=== PATIENT | female | born 1955 | race Caucasian/White ===

== ENCOUNTER 2016-06-22 04:32 | Emergency (ER) | payer OTHER ==
--- NOTE | 2016-06-22 07:14 | DIAGNOSTIC IMAGING REPORT ---
PROCEDURE: CT HEAD WITHOUT CONTRAST INDICATION: DIZZINESS TECHNIQUE: Axial CT images were acquired through the head. Coronal and sagittal reformations were created. COMPARISON: None. FINDINGS: No intracranial hemorrhage or extraaxial fluid collections. Ventricles are normal in size, shape and position. There is no mass, mass effect or midline shift. The agustin-white matter differentiation is normal. There is no edema. The calvarium is intact. The paranasal sinuses and mastoid air cells are normally aerated. The extracranial soft tissues and orbits are normal. IMPRESSION: 1. No CT evidence of acute intracranial process. 2. Findings discussed with Dr. Stover at 07:[address] scans at this facility use dose modulation, iterative reconstruction, and/or weight-based dosing when appropriate to reduce radiation dose to as low as reasonably achievable.
--- NOTE | 2016-06-22 07:19 | DIAGNOSTIC IMAGING REPORT ---
PROCEDURE: XR CHEST 1 VIEW INDICATION: DIZZY TECHNIQUE: Single view chest. 05:06 hours COMPARISON: 12/14/2009 FINDINGS: The cardiopulmonary contour and central vasculature are stable, within normal limits. The lungs are clear without focal consolidation, pleural effusion or pneumothorax. The osseous structures are intact. IMPRESSION: 1. No acute process. 2. Resolution of prior right lower lung infiltrate.
--- NOTE | 2016-06-22 08:13 | ED ORDER SUMMARY ---
..... Patient: JOSEPH LUTZ OrderSheet [facility] VisitID: [id number] [place] [address] 60y, F Registration Date/Time: 06/22/2016 ORDER SHEET Weight: 86.1 kg (stated) Allergies: Codeine GENERAL ORDERS: Chest 1V Urgent (04:56 06/22/2016 Maik SELLERS) (Ack 5:00 CHagerty ER Political Aide) (Ack 5:02 Nadiaekimana) (5:31 GUnger) CBC w Diff Urgent (04:57 06/22/2016 Maik SELLERS) (Ack 5:00 CHagerty ER Political Aide) (5:00 CHagerty ER Political Aide) (Ack 5:01 Maddy) CMP Urgent (04:57 06/22/2016 Maik SELLERS) (Ack 5:00 CHagerty ER Political Aide) (5:00 CHagerty ER Political Aide) (Ack 5:01 Maddy) UA-Culture if indicated Urgent (04:57 06/22/2016 Maik SELLERS) (Ack 5:00 CHagerty ER Political Aide) (Ack 5:01 Maddy) (5:55 RCollier R.N.) Amylase Urgent (04:57 06/22/2016 Maik SELLERS) (Ack 5:00 CHagerty ER Political Aide) (5:00 CHagerty ER Political Aide) (Ack 5:01 Maddy) Lipase Urgent (04:57 06/22/2016 Maik SELLERS) (Ack 5:00 CHagerty ER Political Aide) (5:00 CHagerty ER Political Aide) (Ack 5:01 Maddy) BNP Urgent (04:57 06/22/2016 Maik SELLERS) (Ack 5:00 CHagerty ER Political Aide) (5:00 CHagerty ER Political Aide) (Ack 5:01 Maddy) Urine Drug Screen Urgent (04:57 06/22/2016 Maik SELLERS) (Ack 5:00 CHagerty ER Political Aide) (Ack 5:01 Maddy) (5:55 RCollier R.N.) CPK Urgent (04:57 06/22/2016 Maik SELLERS) (Ack 5:00 CHagerty ER Political Aide) (5:00 CHagerty ER Political Aide) (Ack 5:01 CHategekimana) Troponin-I Urgent (04:57 06/22/2016 Maik SELLERS) (Ack 5:00 CHagerty ER Political Aide) (5:00 CHagerty ER Political Aide) (Ack 5:01 Millaegekimana) Vitals - Orthostatic (04:57 06/22/2016 Maik SELLERS) (5:32 RCollier R.N.) Mobile Nurse (Continuous) (04:57 06/22/2016 Maik SELLERS) (Ack 5:00 CHagerty ER Political Aide) (5:32 RCollier R.N.) Pulse oximeter (04:06/22/2016 Maik SELLERS) (Ack 5:00 CHagerty ER Political Aide) (5:32 RCollier R.N.) EKG - ER Stat (04:57 06/22/2016 Maik SELLERS) (Ack 5:00 CHagerty ER Political Aide) (Ack 5:02 Nadiaekimana) (5:02 CHategekimana) Ethyl Alcohol Urgent (05:15 06/22/2016 Maik SELLERS) (Ack 5:18 Nadiaekimana) (6:44 RCollier R.N.) CT Head wo Cont Urgent (05:19 06/22/2016 Maik SELLERS) (Ack 5:21 Millaegekimana) (6:44 Xochiltger) (6:44 RCollier R.N.) TSH Urgent (05:22 06/22/2016 Maik SELLERS) (Ack 5:33 Nadiaekimana) (6:44 RCollier R.N.) MEDICATION ORDERS: IV FLUIDS: IV Saline Lock (04:57 06/22/2016 Maik SELLERS) (Ack 4:57 RCollier R.N.) (7:35 RMarsden R.N.) IV NS : initial bolus 1000 mL (1000 mL/hr), then 200 mL/hr for 4h (NOW); Urgent (05:17 06/22/2016 Maik SELLERS) (Ack 5:18 RCollier R.N.) (5:33 Reji Serrano) ORDER SHEET NOTES: [Electronically signed by Marshall Stover MD (09:25 06/22/2016)] [Electronically signed by Logan Skelton R.N. (10:51 06/22/2016)] [Electronically locked/signed by Logan Skelton R.N. (10:51 06/22/2016)]
--- NOTE | 2016-06-22 08:13 | ED ORDER SUMMARY ---
..... Patient: JOSEPH LUTZ OrderSheet [facility] VisitID: [id number] [place] [address] 60y, F Registration Date/Time: 06/22/2016 ORDER SHEET Weight: 86.1 kg (stated) Allergies: Codeine GENERAL ORDERS: Chest 1V Urgent (04:56 06/22/2016 Maik SELLERS) (Ack 5:00 CHagerty ER Licensed Psychologist Director) (Ack 5:02 Nadiaekimana) (5:31 GUnger) CBC w Diff Urgent (04:57 06/22/2016 Maik SELLERS) (Ack 5:00 CHagerty ER Licensed Psychologist Director) (5:00 CHagerty ER Licensed Psychologist Director) (Ack 5:01 Maddy) CMP Urgent (04:57 06/22/2016 Maik SELLERS) (Ack 5:00 CHagerty ER Licensed Psychologist Director) (5:00 CHagerty ER Licensed Psychologist Director) (Ack 5:01 Maddy) UA-Culture if indicated Urgent (04:57 06/22/2016 Maik SELLERS) (Ack 5:00 CHagerty ER Licensed Psychologist Director) (Ack 5:01 Maddy) (5:55 RCollier R.N.) Amylase Urgent (04:57 06/22/2016 Maik SELLERS) (Ack 5:00 CHagerty ER Licensed Psychologist Director) (5:00 CHagerty ER Licensed Psychologist Director) (Ack 5:01 Maddy) Lipase Urgent (04:57 06/22/2016 Maik SELLERS) (Ack 5:00 CHagerty ER Licensed Psychologist Director) (5:00 CHagerty ER Licensed Psychologist Director) (Ack 5:01 Maddy) BNP Urgent (04:57 06/22/2016 Maik SELLERS) (Ack 5:00 CHagerty ER Licensed Psychologist Director) (5:00 CHagerty ER Licensed Psychologist Director) (Ack 5:01 Maddy) Urine Drug Screen Urgent (04:57 06/22/2016 Maik SELLERS) (Ack 5:00 CHagerty ER Licensed Psychologist Director) (Ack 5:01 Maddy) (5:55 RCollier R.N.) CPK Urgent (04:57 06/22/2016 Maik SELLERS) (Ack 5:00 CHagerty ER Licensed Psychologist Director) (5:00 CHagerty ER Licensed Psychologist Director) (Ack 5:01 CHategekimana) Troponin-I Urgent (04:57 06/22/2016 Maik SELLERS) (Ack 5:00 CHagerty ER Licensed Psychologist Director) (5:00 CHagerty ER Licensed Psychologist Director) (Ack 5:01 Millaegekimana) Vitals - Orthostatic (04:57 06/22/2016 Maik SELLERS) (5:32 RCollier R.N.) Macerator Operator (Continuous) (04:57 06/22/2016 Maik SELLERS) (Ack 5:00 CHagerty ER Licensed Psychologist Director) (5:32 RCollier R.N.) Pulse oximeter (04:06/22/2016 Maik SELLERS) (Ack 5:00 CHagerty ER Licensed Psychologist Director) (5:32 RCollier R.N.) EKG - ER Stat (04:57 06/22/2016 Maik SELLERS) (Ack 5:00 CHagerty ER Licensed Psychologist Director) (Ack 5:02 Nadiaekimana) (5:02 CHategekimana) Ethyl Alcohol Urgent (05:15 06/22/2016 Maik SELLERS) (Ack 5:18 Nadiaekimana) (6:44 RCollier R.N.) CT Head wo Cont Urgent (05:19 06/22/2016 Maik SELLERS) (Ack 5:21 Millaegekimana) (6:44 Xochiltger) (6:44 RCollier R.N.) TSH Urgent (05:22 06/22/2016 Maik SELLERS) (Ack 5:33 Nadiaekimana) (6:44 RCollier R.N.) MEDICATION ORDERS: IV FLUIDS: IV Saline Lock (04:57 06/22/2016 Maik SELLERS) (Ack 4:57 RCollier R.N.) (7:35 RMarsden R.N.) IV NS : initial bolus 1000 mL (1000 mL/hr), then 200 mL/hr for 4h (NOW); Urgent (05:17 06/22/2016 Maik SELLERS) (Ack 5:18 RCollier R.N.) (5:33 Reji Serrano) ORDER SHEET NOTES: [Electronically signed by Marshall Stover MD (09:25 06/22/2016)] [Electronically signed by Logan Skelton R.N. (10:51 06/22/2016)] [Electronically locked/signed by Logan Skelton R.N. (10:51 06/22/2016)]
--- NOTE | 2016-06-22 08:13 | ED CLINICAL REPORT ---
Clinical Report - Physicians/Mid Levels [facility] [address] [place] [address] 06/22/2016 4:32 Patient: JOSEPH LUTZ Time Seen: 04:43. Arrived- By private vehicle. Historian- patient. HISTORY OF PRESENT ILLNESS Chief Complaint: DIZZINESS. Described as a sense of movement. Not described as feeling light-headed or faint or a sense of confusion. This started today and is now gone. It was abrupt in onset and has been intermittent and waxing/waning. The patient has had nausea ("my stomach has been rolling and gurgling"). No vomiting, hearing loss, tinnitus or ear pain. REVIEW OF SYSTEMS The patient has had chills. No fever, sweats, calf pain, chest pain or cough. No difficulty breathing, pedal edema, black stools, bloody stools or urinary problems. She has had palpitations (chronically - she attributes this to anxiety). It has been similar to previous symptoms. She has had diarrhea (several days ago). She has had nausea (for 4 days). All systems otherwise negative, except as recorded above. PAST HISTORY ( Primary physician (Remberto)). Problems: Diverticulitis. Hypertension. Hypercholesterolemia. Additional Surgeries: Back Surgery. Cholecystectomy. Colon resection. Shoulder Surgery. Tonsillectomy. Medications: Simvastatin Oral, daily. Fiber Oral 4 tablets daily. Lisinopril Oral 20 mg, daily. Vitamins/Minerals Oral 1 pill, daily. Allergies: Codeine. SOCIAL HISTORY Never smoker. Occasional alcohol use. No drug use. FAMILY HISTORY Heart disease in first-degree relative (mother, father and sibling); emphysema in first-degree relative (sibling). ADDITIONAL NOTES The nursing notes have been reviewed. PHYSICAL EXAM Vital Signs: 06/22/2016 04:39 BP: 148/71. HR: 117. RR: 15. O2 saturation: 100%. Temp: 98.4 F. Pain level now: 0/10. Have been reviewed. Appearance: Alert. Anxious. Eyes: Pupils equal, round and reactive to light. No nystagmus. ENT: Normal ENT inspection. Pharynx normal. Neck: Normal inspection. Neck supple. No meningeal signs or carotid bruit. CVS: Normal heart rate and rhythm. Heart sounds normal. Respiratory: No respiratory distress. Breath sounds normal. Abdomen: Soft and nontender. No organomegaly. Back: Normal inspection. Skin: Skin warm and dry. Normal skin color. No rash. Normal skin turgor. Extremities: Extremities exhibit normal ROM. No calf tenderness. No lower extremity edema. Neuro: Alert. Speech normal. Cranial nerves normal (as tested). No cerebellar findings. No motor deficit. No sensory deficit. LABS, X-RAYS, AND EKG EKG: Rate: 116. Non-specific ST segment / T wave abnormalities. EKG unchanged when compared with prior EKG. (14 Dec 2009). The study has been independently viewed by me. Chest X-ray: (IMPRESSION: 1. No acute process. 2. Resolution of prior right lower lung infiltrate.). The X-rays were interpreted contemporaneously by me and discussed with the radiologist. CT Head: (IMPRESSION: 1. No CT evidence of acute intracranial process.). The study was interpreted by the radiologist and contemporaneously by me. Laboratory Tests: UA-Culture if indicated: (ELIZABETH: 06/22/2016 05:40) ( MsgRcvd 06/22/2016 05:56) Final results Test Result Flag Units (Reference) URINE COLOR YELLOW URINE APPEARANCE CLEAR URINE GLUCOSE NEGATIVE (NEGATIVE) URINE BILIRUBIN NEGATIVE (NEGATIVE) URINE KETONE NEGATIVE (NEGATIVE) URINE SPECIFIC GRAVITY 1.020 (1.010-1.030) URINE PH 6.0 (5.0-8.0) URINE PROTEIN NEGATIVE (NEGATIVE) URINE UROBILINOGEN 0.2 EU/dL (0.2-1.0) URINE NITRITE NEGATIVE (NEGATIVE) URINE BLOOD 1+ (NEGATIVE) URINE LEUK ESTERASE NEGATIVE (NEGATIVE) URINE RBC 0-1 rbc/hpf (0-1) URINE WBC 0-1 wbc/hpf (0-1) URINE EPITHELIAL CELLS 0-1 EPI/hpf (0-5) URINE BACTERIA NONE SEEN (NONE SEEN) URINE COMMENT CULT NOT INDICATED URINE CULTURES ARE SET-UP BASED ON THE FOLLOWING CRITERIA:POSITIVE NITRITEPOSITIVE LEUKOCYTE ESTERASEGREATER THAN 10 WHITE BLOOD CELLSMODERATE (2+) OR GREATER BACTERIA CBC w Diff: (ELIZABETH: 06/22/2016 04:47) ( [facility] 06/22/2016 05:03) Final results Test Result Flag Units (Reference) WHITE BLOOD COUNT 7.5 K/uL (4.5-11.5) RED BLOOD COUNT 4.65 M/uL (4.00-5.20) HEMOGLOBIN 13.2 gm/dL (12.0-16.0) HEMATOCRIT 40.0 % (36.0-46.0) MEAN CELL VOLUME 86 fL (80-100) MEAN CORPUSCULAR HGB 29 pg (26-34) MEAN CORPUSCULAR HGB CONC 33 g/dL (31-37) RED CELL DISTRIBUTION WIDTH 12.9 % (11.6-14.8) PLATELET COUNT 228 K/uL (150-400) NEUTROPHIL % 68.1 % (50-75) LYMPH % 26.7 % (25-40) MONO % 4.4 % (3-14) EOSINOPHIL % 0.6 % (0-4) BASOPHIL % 0.2 % (0-2) TSH: (ELIZABETH: 06/22/2016 04:47) ( [facility] 06/22/2016 05:44) Final results Test Result Flag Units (Reference) THYROID STIMULATING HORMONE 3.631 uIU/mL (0.30-3.74) Ethyl Alcohol: (ELIZABETH: 06/22/2016 04:47) ( [facility] 06/22/2016 05:24) Final results Test Result Flag Units (Reference) ETHYL ALCOHOL <3 L mg/dL (3-10) Urine Drug Screen: (ELIZABETH: 06/22/2016 05:40) ( [facility] 06/22/2016 06:09) Final results Test Result Flag Units (Reference) AMPHETAMINE/METHAMPHETAMINE NEGATIVE (NEGATIVE) BARBITURATE NEGATIVE (NEGATIVE) BENZODIAZEPINE NEGATIVE (NEGATIVE) CANNABINOID NEGATIVE (NEGATIVE) COCAINE NEGATIVE (NEGATIVE) ECSTASY NEGATIVE (NEGATIVE) METHADONE NEGATIVE (NEGATIVE) OPIATE NEGATIVE (NEGATIVE) The urine drug screen is a qualitative screening test fordrug overdose and abuse. All screen results should beconsidered as presumptive.Drugs screened for are as follows:BenzodiazepinesCocaineAmphetamines/MetamphetaminesTHC (Tetrahydrocannabinol)OpiatesBarbituratesEcstasyMethadonePositive results are unconfirmed. For confirmation, notifythe lab for the specimen to be sent to the reference lab.All confirmations must be performed by a differentmethodology.The ingestion of natural herbal and plant productscontaining Ephedra/Ephedra metabolites can produce in urineone or more substances capable of cross reacting withamphetamine/methamphetamine immunoassays. These testsprovide a preliminary result only. A more specificalternative chemical method must be used to obtain aconfirmed analytical result. BNP: (ELIZABETH: 06/22/2016 04:47) ( MsgRcvd 06/22/2016 05:28) Final results Test Result Flag Units (Reference) B-TYPE NATRIURETIC PEPTIDE 18.2 pg/ml (5-100) CMP: (ELIZABETH: 06/22/2016 04:47) ( MsgRcvd 06/22/2016 05:23) Final results Test Result Flag Units (Reference) GLUCOSE 125 H mg/dL (70-110) BUN 18 mg/dL (7-18) CREATININE 0.8 mg/dL (0.6-1.3) Estimated GFR >60 mL/min Estimated GFR- >60 mL/min Note: Persistent reduction over 3 months in eGFR<60 mL/min/1.73 m2 defines CKD. Patients with eGFR values>=60 mL/min/1.73 m2 may also have CKD if evidence ofpersistent proteinuria. Additional information may be foundat www.kidney.org. SODIUM 141 mmol/L (136-145) POTASSIUM 3.8 mmol/L (3.5-5.1) CHLORIDE 107 mmol/L (98-107) CARBON DIOXIDE 24 mmol/L (21-32) CALCIUM 8.6 mg/dL (8.5-10.1) TOTAL PROTEIN 7.3 g/dL (6.4-8.2) ALBUMIN 4.0 g/dL (3.3-5.0) BILIRUBIN, TOTAL 0.4 mg/dL (0.0-1.0) ALKALINE PHOSPHATASE 89 U/L (46-116) AST (SGOT) 25 U/L (15-37) ALT (SGPT) 40 U/L (12-78) LIPASE 191 U/L (73-393) AMYLASE 85 U/L (25-115) CPK 64 U/L (24-260) TROPONIN I <0.05 L ng/mL (0.00-1.5) TROPONIN REFERENCE RANGE:<0.1 NEGATIVE0.1-1.5 INDETERMINANT>1.5 POSITIVE . PROGRESS AND PROCEDURES Course of Care: Patient is stable. Patient/family counseled. Old medical records reviewed. Disposition: Discharged. Condition: stable. CLINICAL IMPRESSION Acute dizziness Mild volume depletion. INSTRUCTIONS No driving or operating machinery while taking medication. Drink plenty of fluids. Warnings: Further evaluation is necessary. GENERAL WARNINGS: Return or contact your physician immediately if your condition worsens or changes unexpectedly, if not improving as expected, or if other problems arise. Your Current Medications: CONTINUE TAKING THE FOLLOWING MEDICATIONS: Fiber Oral : 4 tablets daily. Lisinopril Oral : 20 mg daily. Simvastatin Oral : daily. Vitamins/Minerals Oral : 1 pill daily. Prescription Medications: Meclizine 25 mg: Take 1 tablet orally every 8 hours as needed for dizziness. Dispense thirty (30). No refills. Follow-up: Follow up with a neurologist- as recommended by your primary care physician. Understanding of the discharge instructions verbalized by patient. Follow-up with: Charanjit Sr MD, [facility], , [address] [place] [id number] Follow up today. Call for the next available appointment. (Electronically signed by Marshall Stover MD 06/22/2016 9:25)
--- NOTE | 2016-06-22 08:13 | ED NURSING NOTES ---
Clinical Report - Nurses [facility] [address] [place] [address] 06/22/2016 4:32 [id number] TRI[facility] Triage time 04:39. Acuity: LEVEL 3. Chief Complaint: DIZZINESS. --04:43 Tasha Moody R.N. 04:39 06/22/16. BP: 148/71. HR: 117. RR: 15 (regular and unlabored). O2 saturation: 100% on room air. Temp: 98.4 F (oral). Pain level now: 0/10. --04:43 Tasha Moody R.N. Weight: 86.1 kg stated. Height/Length: 65 inches Per Patient. BMI: 31.6. --04:43 Tasha Moody R.N. Medications Fiber Oral 4 tablets daily. Lisinopril Oral 20 mg, daily. Vitamins/Minerals Oral 1 pill, daily. --04:41 Tasha Moody R.N. Simvastatin Oral, daily. --04:41 Tasha Moody R.N. The following entry was struck and corrected by Tasha Moody R.N., 04:45 (06/22/16) Reason for correction - other(correction). <<STRICKEN ENTRY-- Simvastatin Oral. --04:41 Tasha Moody R.N. --END STRIKE>>. Allergies Codeine. --04:41 Tasha Moody R.N. History Arrived by private vehicle. Historian: patient. Accompanied by family. Primary physician (Remberto). This started today at about 0100. She has had nausea. SOCIAL HX: Never smoker. Occasional alcohol use. No drug use. NUTRITIONAL RISK ASSESSMENT: The nutritional risk assessment revealed no deficiencies. FUNCTIONAL ASSESSMENT: Functional assessment: no impairments noted. --04:43 Tasha Moody R.N. PROBLEMS: Hypertension. Hypercholesterolemia. --04:42 Tasha Moody R.N. ADDITIONAL SURGERIES: Back Surgery. Cholecystectomy. Colon resection. Shoulder Surgery. Tonsillectomy. --04:42 Tasha Moody R.N. Interventions ID band on patient. To treatment room. --04:43 Tasha Moody R.N. PHYSICAL ASSESSMENT To room via wheelchair. Patient gowned. GENERAL / NEURO / PSYCH: Oriented X 4. Appears in no acute distress. Alert. Speech within normal limits. HEENT: No facial asymmetry noted. RESPIRATORY: Respirations not labored. CVS: Capillary refill less than 2 seconds. SKIN: Skin is warm and dry. --04:44 Tasha Moody R.N. NURSING PROGRESS NOTES Head of bed elevated. Two patient identifiers checked. Call light placed in reach. Side rails up x 1. Bed placed in lowest position. Brakes of bed on. --04:44 Tasha Moody R.N. Patient ready for evaluation- chart flagged. --04:44 Tasha Moody R.N. awake overnight monitor, pulse oximeter and NIBP monitor placed on patient; monitor alarms on. --04:44 Tasha Moody R.N. 04:53 06/22/2016 Site #1 started via IV in the right antecubital space with an 20g angiocath, with aseptic technique and good blood return; two attempts. Blood drawn: rainbow set. Labeled in the presence of the patient and sent to the lab. Saline lock flushed with 10 mL saline. --04:56 Tasha Moody R.N. EKG time: (0456 AM). EKG was ordered, performed by a tech and shown to the ED physician. --05:03 Janel Moreland 05:22 06/22/16. BP: 144/78 taken while lying. HR: 105. --05:29 Tasha Moody R.N. 05:24 06/22/16. BP: 136/79 taken while sitting. HR: 110. --05:30 Tasha Moody R.N. 05:26 06/22/16. BP: 149/88. HR: 112. Additional comments: HR initally, upon standing, was 125. by the time the pressure had taken, it was down to 112. Pt denies increase of symptoms upon position change. EDMD aware. --05:32 Tasha Moody R.N. 05:29 06/22/2016 Started bag #1 1000 mL IV Fluids IV NS (Saline); at 1000 mL/hr over 1 hour(s) via site #1 via IV pump. Allergies verified and confirmed 5 rights. IV patency established. IV site checked: no pain, redness, or swelling. IV flushed thoroughly pre- and post-medication administration. --05:33 Tasha Moody R.N. ( assisted pt up to ambulate to restroom and back to bed.). --05:41 Tasha Moody R.N. Patient ID band checked for patient name and birthdate: patient confirmed. Instructions provided to collect clean catch urine and patient verbalized understanding. Clean catch urine collected with return of yellow-colored clear urine; sample sent to lab. Specimen labeled in the presence of the patient. --05:41 Tasha Moody R.N. ( Jewelry removed by patient and placed in a specimen cup.). --06:05 Tasha Moody R.N. Patient returned from CT by stretcher with tech. (06:38). --06:41 Tasha Moody R.N. 06:41 06/22/16. BP: 145/74. HR: 94. RR: 15. O2 saturation: 100% on room air. Pain level now: 0/10. --06:41 Tasha Moody R.N. 06:39 06/22/2016 IV Fluids IV NS Discontinued: bag #1 completed. Total amount infused: 1000 mL. IV patency established. IV site checked: no pain, redness, or swelling. IV flushed thoroughly. --06:43 Tasha Moody R.N. 06:40 06/22/2016 Started bag #2 1000 mL IV Fluids IV NS (Saline); at 200 mL/hr via site #1 via IV pump. Allergies verified and confirmed 5 rights. IV patency established. IV site checked: no pain, redness, or swelling. IV flushed thoroughly pre- and post-medication administration. --06:44 Tasha Moody R.N. 07:10. ( Patient ambulated to bathroom). --07:35 Genesis Li R.N. 07:45 06/22/16. BP: 133/78 (regular adult cuff) taken on the left arm, while lying. HR: 95. RR: 20. O2 saturation: 96% on room air. Pain level now: 0/10. --07:48 Logan Skelton R.N. ( Pt up to the BR. She states that she is more dizzy when laying down than when she is standing.). --07:48 Logan Skelton R.N. 08:10 06/22/2016 IV Fluids IV NS Discontinued: bag #2. Total amount infused: 350 mL. --08:33 Logan Skelton R.N. 08:32 06/22/2016 Site #1 removed upon discharge. --08:32 Logan Skelton R.N. DISPOSITION / DISCHARGE 07:45 06/22/16. BP: 133/78 (regular adult cuff) taken on the left arm, while lying. HR: 95. RR: 20. O2 saturation: 96% on room air. Pain level now: 0/10. --08:18 Logan Skelton R.N. 08:18 06/22/16. Temp: 98 F (oral). --08:18 Logan Skelton R.N. 08:52 06/22/16. Condition at departure: improved and stable. No learning barriers present. Discharge instructions provided and reviewed with the patient and spouse. Reviewed medication(s). Patient verbalized understanding. Written instructions provided in Bulgarian. The patient was discharged by the physician. She was discharged home and accompanied by spouse. She left the Emergency Department ambulatory and via private vehicle. Spouse driving. --08:52 Logan Skelton R.N. Locked/Released at 06/22/2016 10:51 by Logan Skelton R.N.
--- NOTE | 2016-06-22 10:51 | ED MAR SUMMARY ---
..... Medication Administration Record [facility] [address] [place] [address] Patient: JOSEPH LUTZ Visit ID: [id number] 60y, F Weight: 86.1 kg Height/Length: 65 in BMI: 31.6 ALLERGIES: Codeine Start 05:29 06/22/2016 Tasha Moody R.N., Stop 06:39 06/22/2016 Tasha Moody R.N. Medication Administered: IV NS (SALINE), Dose: IV Fluids over 1 hour(s), Rate: 1000 mL/hr, Dispensed: 1000 mL bag, Site: #1 right AC. Medication Ordered: IV NS : initial bolus 1000 mL (1000 mL/hr), then 200 mL/hr for 4h (NOW); Urgent. Start 06:40 06/22/2016 Tasha Moody RVaN., Stop 08:10 06/22/2016 Logan Skelton RShy Medication Administered: IV NS (SALINE), Dose: IV Fluids, Rate: 200 mL/hr, Dispensed: 1000 mL bag, Site: #1 right AC. Medication Ordered: IV NS : initial bolus 1000 mL (1000 mL/hr), then 200 mL/hr for 4h (NOW); Urgent.
--- NOTE | 2016-06-22 10:51 | ED DISCHARGE INSTRUCTIONS ---
Patient: JOSEPH LUTZ General Instructions [facility] VisitID: [id number] [address] [place], [place] [id number] 60y, F Registration Date/Time: 06/22/2016 Acute dizziness Mild volume depletion. INSTRUCTIONS No driving or operating machinery while taking medication. Drink plenty of fluids. Warnings: Further evaluation is necessary. GENERAL WARNINGS: Return or contact your physician immediately if your condition worsens or changes unexpectedly, if not improving as expected, or if other problems arise. Your Current Medications: CONTINUE TAKING THE FOLLOWING MEDICATIONS: Fiber Oral : 4 tablets daily. Lisinopril Oral : 20 mg daily. Simvastatin Oral : daily. Vitamins/Minerals Oral : 1 pill daily. Prescription Medications: Meclizine 25 mg: Take 1 tablet orally every 8 hours as needed for dizziness. Dispense thirty (30). No refills. Follow-up: Follow up with a neurologist- as recommended by your primary care physician. Understanding of the discharge instructions verbalized by patient. Follow-up with: Charanjit Sr MD, [facility], , [address] [place] [id number] Follow up today. Call for the next available appointment. ADDITIONAL INFORMATION Dizziness [Uncertain Cause] Dizziness is a common symptom sometimes described as "lightheadedness" or feeling like you are going to faint. If it lasts for only a few seconds and is related to changes in position (such as getting up after lying or sitting for a long time), it is usually not a sign of anything serious. Dizziness that lasts for minutes to hours, or comes on for no apparent reason, may be a sign of a more serious problem (such as dehydration, a medicine reaction, disease of the heart or brain). Today's exam did not show an exact cause for your dizzy spell . Sometimes additional tests are required before a cause can be found. Therefore, it is important to follow up with your doctor if your symptoms continue. Home Care: 1) If a dizzy spell occurs and lasts more than a few seconds, lie down until it passes. If you are lying down, then you cannot hurt yourself by falling if you do faint. 2) Do not drive or operate dangerous equipment until the dizzy spells have stopped for at least 48 hours. 3) If dizzy spells occur with sudden standing, this may be a sign of mild dehydration. Drink extra fluids over the next few days. 4) If you recently started a new medicine or if you had the dose of a current medicine increased (especially blood pressure medicine), talk with the prescribing doctor about your symptoms. Dose adjustments may be needed. Follow Up with your doctor for further evaluation within the next seven days, if your symptoms continue. Get Prompt Medical Attention if any of the following occur: -- Worsening of your symptoms -- Fainting, headache or seizure -- Repeated vomiting -- Feeling like you or the room is spinning -- Chest, arm, neck, back or jaw pain -- Palpitations (the sense that your heart is fluttering or beating fast or hard) -- Shortness of breath -- Blood in vomit or stool (black or red color) -- Weakness of an arm or leg or one side of the face -- Difficulty with speech or vision Dehydration (Adult) Dehydration occurs when your body loses too much fluid. This may be the result of vomiting a lot or from diarrhea,sweating a lot, or a high fever. It may also happen if you dont drink enough fluid when youre sick. Misuse of diuretics (water pills) can also be a cause. Symptoms include thirst and feeling dizzy, weak, fatigued, or very drowsy. The diet described below is usually enough to treat most cases. Sometimes you may needmedicine. Home Care Follow these guidelines for home care: Drink at least 12 8-ounce glasses of fluid every day to overcome the dehydration. Fluid may include water; orange juice; lemonade; apple, grape, and cranberry juice; clear fruit drinks; electrolyte replacement and sports drinks; and teas and coffee without caffeine. If you have been diagnosed with a kidney disease, ask your doctor how much and what types of fluids you should drink to prevent dehydration. If you have kidney disease, drinking too much fluid can cause it build up in the your body and be dangerous to your health. If you have fever, muscle aching, or headache from a viral syndrome, you may useacetaminophen or ibuprofen, unless another medicine was prescribed for this.If you have chronic liver or kidney disease or ever had a stomach ulcer or GI bleeding, talk with your doctor before using these medicines. Don't take aspirin if you are younger than 18 and are ill with a fever.Aspirin raises the chance forsevere liver injury. Follow-up care Follow up with your health care provider if you don't get better in the next 24 to 48 hours. When to seek medical care Get prompt medical attention if any of theseoccur: Continued vomiting (cant keep liquids down) Frequent diarrhea (more than 5 times a day); blood (red or black color) or mucus in diarrhea Blood in vomit or stool Swollen abdomen or increasing abdominal pain Weakness, dizziness, or fainting Unusually drowsy or confused Reduced urine output or extreme thirst Fever of 100.4 F (38 C) oral or higher that does not get better with fever medication Meclizine Hydrochloride Oral tablet What is this medicine? MECLIZINE (BACILIO aguilera) is an antihistamine. It is used to prevent nausea, vomiting, or dizziness caused by motion sickness. It is also used to prevent and treat vertigo (extreme dizziness or a feeling that you or your surroundings are tilting or spinning around). How should I use this medicine? Take this medicine by mouth with a glass of water. Follow the directions on the prescription label. If you are using this medicine to prevent motion sickness, take the dose at least 1 hour before travel. If it upsets your stomach, take it with food or milk. Take your doses at regular intervals. Do not take your medicine more often than directed. Talk to your sleep medicine physician regarding the use of this medicine in children. Special care may be needed. What side effects may I notice from receiving this medicine? Side effects that you should report to your doctor or health menagerie caretaker as soon as possible: fainting spells fast or irregular heartbeat Side effects that usually do not require medical attention (report to your doctor or health menagerie caretaker if they continue or are bothersome): constipation difficulty passing urine difficulty sleeping headache stomach upset What may interact with this medicine? barbiturate medicines for inducing sleep or treating seizures digoxin medicines for anxiety or sleeping problems, like alprazolam, diazepam or temazepam medicines for hay fever and other allergies medicines for mental depression medicines for movement abnormalities as in Parkinson's disease, or for stomach problems medicines for pain medicines that relax muscles What if I miss a dose? If you miss a dose, take it as soon as you can. If it is almost time for your next dose, take only that dose. Do not take double or extra doses. Where should I keep my medicine? Keep out of the reach of children. Store at room temperature between 15 and 30 degrees C (59 and 86 degrees F). Keep container tightly closed. Throw away any unused medicine after the expiration date. What should I tell my health care provider before I take this medicine? They need to know if you have any of these conditions: asthma glaucoma prostate trouble stomach problems urinary problems an unusual or allergic reaction to meclizine, other medicines, foods, dyes, or preservatives or trying to get breast-feeding What should I watch for while using this medicine? If you are taking this medicine on a regular schedule, visit your doctor or health menagerie caretaker for regular checks on your progress. You may get dizzy, drowsy or have blurred vision. Do not drive, use machinery, or do anything that needs mental alertness until you know how this medicine affects you. Do not stand or sit up quickly, especially if you are an older patient. This reduces the risk of dizzy or fainting spells. Alcohol can increase possible dizziness. Avoid alcoholic drinks. Your mouth may get dry. Chewing sugarless gum or sucking hard candy, and drinking plenty of water may help. Contact your doctor if the problem does not go away or is severe. This medicine may cause dry eyes and blurred vision. If you wear contact lenses you may feel some discomfort. Lubricating drops may help. See your eye doctor if the problem does not go away or is severe. You have been given the following additional information: Dizziness, Unk Cause Dehydration (Adult) Meclizine Hydrochloride Oral tablet No driving or operating machinery while taking medication. (Electronically signed by Marshall Stover MD 06/22/2016 9:25)
--- NOTE | 2016-06-22 10:51 | ED MED RECONCILIATION SUMMARY ---
Patient: JOSEPH LUTZ Medication Reconciliation Report [facility] VisitID: [id number] [address] [place] [address] 60y, F Registration Date/Time: 06/22/2016 Weight: 86.1 kg Height/Length: 65 in. BMI: 31.6 ALLERGIES: Codeine The patient's Home Medications are listed below: CONTINUE TAKING THE FOLLOWING MEDICATIONS: Fiber Oral 4 tablets daily Lisinopril Oral 20 mg, daily Simvastatin Oral, daily Vitamins/Minerals Oral 1 pill, daily The source(s) of the original Home Medication information: Not obtained. The following Medications were given to the patient in the Emergency Department: IV NS IV Fluids bolus 0, then 1000 mL/hr, administered: 06/22/2016 5:29:00 AM IV NS IV Fluids bolus 0, then 200 mL/hr, administered: 06/22/2016 6:40:00 AM The following Medications were prescribed to the patient: Meclizine 25 mg: Take 1 tablet orally every 8 hours as needed for dizziness. Dispense thirty (30). No refills. -- Marshall Stover MD
--- NOTE | 2016-06-22 10:51 | ED MED RECONCILIATION SUMMARY ---
Patient: JOSEPH LUTZ Medication Reconciliation Report [facility] VisitID: [id number] [address] [place] [address] 60y, F Registration Date/Time: 06/22/2016 Weight: 86.1 kg Height/Length: 65 in. BMI: 31.6 ALLERGIES: Codeine The patient's Home Medications are listed below: CONTINUE TAKING THE FOLLOWING MEDICATIONS: Fiber Oral 4 tablets daily Lisinopril Oral 20 mg, daily Simvastatin Oral, daily Vitamins/Minerals Oral 1 pill, daily The source(s) of the original Home Medication information: Not obtained. The following Medications were given to the patient in the Emergency Department: IV NS IV Fluids bolus 0, then 1000 mL/hr, administered: 06/22/2016 5:29:00 AM IV NS IV Fluids bolus 0, then 200 mL/hr, administered: 06/22/2016 6:40:00 AM The following Medications were prescribed to the patient: Meclizine 25 mg: Take 1 tablet orally every 8 hours as needed for dizziness. Dispense thirty (30). No refills. -- Marshall Stover MD
--- NOTE | 2016-06-22 10:51 | ED MAR SUMMARY ---
..... Medication Administration Record [facility] [address] [place] [address] Patient: JOSEPH LUTZ Visit ID: [id number] 60y, F Weight: 86.1 kg Height/Length: 65 in BMI: 31.6 ALLERGIES: Codeine Start 05:29 06/22/2016 Tasha Moody R.N., Stop 06:39 06/22/2016 Tasha Moody R.N. Medication Administered: IV NS (SALINE), Dose: IV Fluids over 1 hour(s), Rate: 1000 mL/hr, Dispensed: 1000 mL bag, Site: #1 right AC. Medication Ordered: IV NS : initial bolus 1000 mL (1000 mL/hr), then 200 mL/hr for 4h (NOW); Urgent. Start 06:40 06/22/2016 Tasha Moody RVaN., Stop 08:10 06/22/2016 Logan Skelton RShy Medication Administered: IV NS (SALINE), Dose: IV Fluids, Rate: 200 mL/hr, Dispensed: 1000 mL bag, Site: #1 right AC. Medication Ordered: IV NS : initial bolus 1000 mL (1000 mL/hr), then 200 mL/hr for 4h (NOW); Urgent.
--- NOTE | 2016-06-22 10:51 | ED DISCHARGE INSTRUCTIONS ---
Patient: JOSEPH LUTZ General Instructions [facility] VisitID: [id number] [address] [place], [place] [id number] 60y, F Registration Date/Time: 06/22/2016 Acute dizziness Mild volume depletion. INSTRUCTIONS No driving or operating machinery while taking medication. Drink plenty of fluids. Warnings: Further evaluation is necessary. GENERAL WARNINGS: Return or contact your physician immediately if your condition worsens or changes unexpectedly, if not improving as expected, or if other problems arise. Your Current Medications: CONTINUE TAKING THE FOLLOWING MEDICATIONS: Fiber Oral : 4 tablets daily. Lisinopril Oral : 20 mg daily. Simvastatin Oral : daily. Vitamins/Minerals Oral : 1 pill daily. Prescription Medications: Meclizine 25 mg: Take 1 tablet orally every 8 hours as needed for dizziness. Dispense thirty (30). No refills. Follow-up: Follow up with a neurologist- as recommended by your primary care physician. Understanding of the discharge instructions verbalized by patient. Follow-up with: Charanjit Sr MD, [facility], , [address] [place] [id number] Follow up today. Call for the next available appointment. ADDITIONAL INFORMATION Dizziness [Uncertain Cause] Dizziness is a common symptom sometimes described as "lightheadedness" or feeling like you are going to faint. If it lasts for only a few seconds and is related to changes in position (such as getting up after lying or sitting for a long time), it is usually not a sign of anything serious. Dizziness that lasts for minutes to hours, or comes on for no apparent reason, may be a sign of a more serious problem (such as dehydration, a medicine reaction, disease of the heart or brain). Today's exam did not show an exact cause for your dizzy spell . Sometimes additional tests are required before a cause can be found. Therefore, it is important to follow up with your doctor if your symptoms continue. Home Care: 1) If a dizzy spell occurs and lasts more than a few seconds, lie down until it passes. If you are lying down, then you cannot hurt yourself by falling if you do faint. 2) Do not drive or operate dangerous equipment until the dizzy spells have stopped for at least 48 hours. 3) If dizzy spells occur with sudden standing, this may be a sign of mild dehydration. Drink extra fluids over the next few days. 4) If you recently started a new medicine or if you had the dose of a current medicine increased (especially blood pressure medicine), talk with the prescribing doctor about your symptoms. Dose adjustments may be needed. Follow Up with your doctor for further evaluation within the next seven days, if your symptoms continue. Get Prompt Medical Attention if any of the following occur: -- Worsening of your symptoms -- Fainting, headache or seizure -- Repeated vomiting -- Feeling like you or the room is spinning -- Chest, arm, neck, back or jaw pain -- Palpitations (the sense that your heart is fluttering or beating fast or hard) -- Shortness of breath -- Blood in vomit or stool (black or red color) -- Weakness of an arm or leg or one side of the face -- Difficulty with speech or vision Dehydration (Adult) Dehydration occurs when your body loses too much fluid. This may be the result of vomiting a lot or from diarrhea,sweating a lot, or a high fever. It may also happen if you dont drink enough fluid when youre sick. Misuse of diuretics (water pills) can also be a cause. Symptoms include thirst and feeling dizzy, weak, fatigued, or very drowsy. The diet described below is usually enough to treat most cases. Sometimes you may needmedicine. Home Care Follow these guidelines for home care: Drink at least 12 8-ounce glasses of fluid every day to overcome the dehydration. Fluid may include water; orange juice; lemonade; apple, grape, and cranberry juice; clear fruit drinks; electrolyte replacement and sports drinks; and teas and coffee without caffeine. If you have been diagnosed with a kidney disease, ask your doctor how much and what types of fluids you should drink to prevent dehydration. If you have kidney disease, drinking too much fluid can cause it build up in the your body and be dangerous to your health. If you have fever, muscle aching, or headache from a viral syndrome, you may useacetaminophen or ibuprofen, unless another medicine was prescribed for this.If you have chronic liver or kidney disease or ever had a stomach ulcer or GI bleeding, talk with your doctor before using these medicines. Don't take aspirin if you are younger than 18 and are ill with a fever.Aspirin raises the chance forsevere liver injury. Follow-up care Follow up with your health care provider if you don't get better in the next 24 to 48 hours. When to seek medical care Get prompt medical attention if any of theseoccur: Continued vomiting (cant keep liquids down) Frequent diarrhea (more than 5 times a day); blood (red or black color) or mucus in diarrhea Blood in vomit or stool Swollen abdomen or increasing abdominal pain Weakness, dizziness, or fainting Unusually drowsy or confused Reduced urine output or extreme thirst Fever of 100.4 F (38 C) oral or higher that does not get better with fever medication Meclizine Hydrochloride Oral tablet What is this medicine? MECLIZINE (BACILIO aguilera) is an antihistamine. It is used to prevent nausea, vomiting, or dizziness caused by motion sickness. It is also used to prevent and treat vertigo (extreme dizziness or a feeling that you or your surroundings are tilting or spinning around). How should I use this medicine? Take this medicine by mouth with a glass of water. Follow the directions on the prescription label. If you are using this medicine to prevent motion sickness, take the dose at least 1 hour before travel. If it upsets your stomach, take it with food or milk. Take your doses at regular intervals. Do not take your medicine more often than directed. Talk to your water/wastewater project manager regarding the use of this medicine in children. Special care may be needed. What side effects may I notice from receiving this medicine? Side effects that you should report to your doctor or health patient care director as soon as possible: fainting spells fast or irregular heartbeat Side effects that usually do not require medical attention (report to your doctor or health patient care director if they continue or are bothersome): constipation difficulty passing urine difficulty sleeping headache stomach upset What may interact with this medicine? barbiturate medicines for inducing sleep or treating seizures digoxin medicines for anxiety or sleeping problems, like alprazolam, diazepam or temazepam medicines for hay fever and other allergies medicines for mental depression medicines for movement abnormalities as in Parkinson's disease, or for stomach problems medicines for pain medicines that relax muscles What if I miss a dose? If you miss a dose, take it as soon as you can. If it is almost time for your next dose, take only that dose. Do not take double or extra doses. Where should I keep my medicine? Keep out of the reach of children. Store at room temperature between 15 and 30 degrees C (59 and 86 degrees F). Keep container tightly closed. Throw away any unused medicine after the expiration date. What should I tell my health care provider before I take this medicine? They need to know if you have any of these conditions: asthma glaucoma prostate trouble stomach problems urinary problems an unusual or allergic reaction to meclizine, other medicines, foods, dyes, or preservatives or trying to get breast-feeding What should I watch for while using this medicine? If you are taking this medicine on a regular schedule, visit your doctor or health patient care director for regular checks on your progress. You may get dizzy, drowsy or have blurred vision. Do not drive, use machinery, or do anything that needs mental alertness until you know how this medicine affects you. Do not stand or sit up quickly, especially if you are an older patient. This reduces the risk of dizzy or fainting spells. Alcohol can increase possible dizziness. Avoid alcoholic drinks. Your mouth may get dry. Chewing sugarless gum or sucking hard candy, and drinking plenty of water may help. Contact your doctor if the problem does not go away or is severe. This medicine may cause dry eyes and blurred vision. If you wear contact lenses you may feel some discomfort. Lubricating drops may help. See your eye doctor if the problem does not go away or is severe. You have been given the following additional information: Dizziness, Unk Cause Dehydration (Adult) Meclizine Hydrochloride Oral tablet No driving or operating machinery while taking medication. (Electronically signed by Marshall Stover MD 06/22/2016 9:25)
== END 2016-06-22 08:50 | disposition home or self-care (01) ==
LOC: ED SRH 04:32
DX: R42 Dizziness and giddiness (principal); E86.9 Volume depletion, unspecified; I10 Essential (primary) hypertension; Z88.5 Allergy status to narcotic agent; Z79.899 Other long term (current) drug therapy
CPT/HCPCS: 90004; 90100; 90616; 91320; 92010; 92235; 92530; 92610; 92760; 92761; 92762; 92763; 92764; 92765; 92766; 92767; 93140; 95059